=== PATIENT | male | born 2000 | race Caucasian/White ===

== ENCOUNTER 2022-11-06 20:50 | Emergency (ER) | payer BC ==
[~2022-11-06] VITALS: Ht 182.9 cm; Wt 86.2 kg
[2022-11-06 20:52] VITALS: BP_SYST 150
--- NOTE | 2022-11-06 20:52 | NUR ---
Triaged and placed patient in ER bed 8 for evaluation. No acute respiratory distress at this time. VSS. Informed patient to notify ED staff for any changes in condition or worsening of symptoms while waiting to be seen by a provider. Patient verbalized understanding.
--- NOTE | 2022-11-06 20:58 | NUR ---
Dr. Delgadillo at bedside examining the patient.
[2022-11-06 21:39] LABS: BILIRUBIN,URINE NEGATIVE (NEGATIVE); BLOOD, URINE NEGATIVE (NEGATIVE); CLARITY/URINE CLEAR (CLEAR); COLOR,URINE YELLOW (YELLOW); GLUCOSE,URINE NEGATIVE (NEGATIVE); KETONES,URINE TRACE (NEGATIVE); LEUKOCYTE ESTERASE ,URINE NEGATIVE (NEGATIVE); NITRITE, URINE NEGATIVE (NEGATIVE); PH,URINE 6.5 (5.0-8.0); PROTEIN URINE NEGATIVE (NEGATIVE); UROBILINOGEN,URINE 0.2 (0.2-1.0)
[2022-11-06] MEDS ORDERED: CIPR500T5 PO (23:39)
[2022-11-06 23:51] VITALS: BP_SYST 128
--- NOTE | 2022-11-06 23:53 | NUR ---
Patient given written and verbal discharge instructions and verbalizes understanding. ER MD discussed with patient the results and treatment provided. Patient in stable condition. ID arm band removed. IV catheter removed intact and dressing applied, no active bleeding. Patient educated on pain management and to follow up with PMD. Pain Scale . Opportunity for questions provided and answered. Medication side effect fact sheet provided.
== END 2022-11-06 23:51 | disposition home or self-care (01) ==
LOC: SED 20:50
DX: N45.1 Epididymitis (principal); N50.811 Right testicular pain; Z79.899 Other long term (current) drug therapy
CPT/HCPCS: 76376; 76870-TC; 81003; 99284